=== PATIENT | female | born 1985 | race Caucasian/White ===

== ENCOUNTER → 2017-05-06 | Outpatient (CLI) | payer OTHER | END | disposition home or self-care (01) | LOC: US 11:00 | PROC: BH00ZZZ Plain Radiography of Right Breast (ICD-10-PCS; principal; 2017-05-06) | PROC: BH42ZZZ Ultrasonography of Bilateral Breasts (ICD-10-PCS; 2017-05-06) | DX: N60.19 Diffuse cystic mastopathy of unspecified breast (principal); Z98.82 Breast implant status | CPT/HCPCS: 76641; G0204 ==